=== PATIENT | male | born 1965 | race Caucasian/White ===

== ENCOUNTER 2016-11-19 07:21 | Day surgery (SDC) | payer BC ==
[~2016-11-19] VITALS: Ht 182.9 cm; Wt 79.2 kg
[2016-11-19] MEDS ORDERED: PRINIVIL10 MG PO (07:46)
[2016-11-19] MEDS ORDERED: TOPROL XL 50MG50 MG PO (07:46)
[2016-11-19] MEDS ORDERED: LIPITOR 10MG10 MG PO (07:47)
[2016-11-19] MEDS ORDERED: URINOZINC PO (07:50)
[2016-11-19 08:05] VITALS: BP 127/77; PULSE 65; TEMP 98.2
[2016-11-19 10:20] VITALS: BP 118/69; PULSE 60; TEMP 97.8
[2016-11-19 10:35] VITALS: BP 112/72; PULSE 41
[2016-11-19] MEDS ORDERED: NORCO 325 MG-51 TAB PO (10:35)
[2016-11-19] MEDS ORDERED: SENOKOT S 50 MG1 TAB PO (10:36)
[2016-11-19] MEDS ORDERED: PYRIDIUM 100MG100 MG PO (10:36)
[2016-11-19 10:50] VITALS: BP 115/70; PULSE 53
[2016-11-19 11:05] VITALS: BP 116/74; PULSE 67
== END 2016-11-19 11:27 | disposition home or self-care (01) ==
LOC: SDCO 07:21
DX: N20.1 Calculus of ureter (principal); I10 Essential (primary) hypertension; F17.220 Nicotine dependence, chewing tobacco, uncomplicated; Z80.0 Family history of malignant neoplasm of digestive organs
CPT/HCPCS: C1769; C2617; J0690; J2405; J2704; J3010; J7120; Q9967